=== PATIENT | female | born 1935 | race Caucasian/White ===

== ENCOUNTER → 2021-06-27 | Outpatient (CLI) | payer MEDICARE ==
--- NOTE | 2021-06-28 09:40 | RAD ---
MR#: [id number] Date of Study: 06/27/2021 Ordering Physician: MARIO GIPSON, Referring Physician: MARIO GIPSON, Tech: Jacklyn Jimenes RDMS, RVT, RTR APPROVED REPORT Bilateral Lower Extremity Venous Study for DVT Patient Location: OUT-PATIENT Indications Lower Extremity Edema: Bilateral Findings The bilateral lower extremity deep veins were evaluated for thrombus with color Doppler, spectral and grayscale images. On the right the grayscale images of the common femoral, superficial femoral and popliteal veins do n ot demonstrate any evidence of thrombus and these veins appear to be compressible. The below-knee vei ns were not well visualized but grossly appear to be compressible. Spectral imaging and color Doppler do not reveal any evidence of obstruction to flow with normal respirophasic variation above the knee . Below the knee there is spontaneous flow noted. On the left, the grayscale images of the common femoral, superficial femoral and popliteal veins do n ot demonstrate any evidence of thrombus and these veins appear to be compressible. The below-knee vei ns again were not well visualized but grossly appear to be compressible. Spectral imaging and color D oppler do not reveal any evidence of obstruction to flow with normal respirophasic variation above th e knee. The below-knee veins demonstrate spontaneous flow. Critical Notification Critical Value: No <Conclusion> 1. Negative for DVT in the bilateral lower extremities. 2. Technically difficult study. Signed by : Odell Mary, Electronically Approved : 06/28/2021 09:39:38
--- NOTE | 2021-06-28 10:13 | CARD ---
MR#: [id number] Date of Study: 06/27/2021 Ordering Physician: MARIO GIPSON, Referring Physician: MARIO GIPSON, Tech: Nessa Luis [facility] APPROVED REPORT EXAM: Two-dimensional and M-mode echocardiogram with Doppler and color Doppler. Other Information Quality : AverageHR: 79bpm Rhythm : NSR INDICATION Dyspnea RISK FACTORS Hypertension Obesity 2D DIMENSIONS RVDd3.6 (2.9-3.5cm)Left Atrium(2D)3.0 (1.6-4.0cm) IVSd0.9 (0.7-1.1cm)Aortic Root(2D)2.5 (2.0-3.7cm) LVDd3.4 (3.9-5.9cm)LVOT Diameter1.9 (1.8-2.4cm) PWd1.1 (0.7-1.1cm)LVDs2.2 (2.5-4.0cm) FS (%) 36.3 %SV32.7 ml LVEF(%)67.2 (>50%) Aortic Valve AoV Peak Brendan.118.8cm/sAoV VTI23.9cm AO Peak GR.5.6mmHgLVOT Peak Brendan.91.7cm/s AO Mean GR.3mmHgAVA (VMAX)2.21cm2 Mitral Valve MV E Njjzjfsf49.8cm/sMV DECEL NFSF140gk MV A Unvtqfbi885.4cm/sE/A Ratio0.6 Pulmonary Valve PV Peak Ijcrxwha239.0cm/s Tricuspid Valve TR P. Sthzuccw611oo/sTR Peak Gr.19mmHg LEFT VENTRICLE The left ventricle is normal size. There is normal left ventricular wall thickness. The left ventricu lar systolic function is normal and the ejection fraction is within normal range. Estimated ejection fraction 55-60%. There is normal LV segmental wall motion. Transmitral Doppler flow pattern is Grade I-abnormal relaxation pattern. RIGHT VENTRICLE The right ventricle is normal size. There is normal right ventricular wall thickness. The right ventr icular systolic function is normal. ATRIA The left atrium size is normal. The right atrium size is normal. The interatrial septum is intact wit h no evidence for an atrial septal defect or patent foramen ovale as noted on 2-D or Doppler imaging. AORTIC VALVE The aortic valve is normal in structure and function. Doppler and Color Flow revealed no significant aortic regurgitation. There is no significant aortic valvular stenosis. MITRAL VALVE The mitral valve is normal in structure and function. There is no evidence of mitral valve prolapse. There is no mitral valve stenosis. Doppler and Color Flow revealed no mitral valve regurgitation note d. TRICUSPID VALVE The tricuspid valve is normal in structure and function. Doppler and Color Flow revealed trace tricus pid regurgitation. Estimated PAP 23 mmHg. There is no tricuspid valve stenosis. PULMONIC VALVE Doppler and Color Flow revealed mild pulmonic valvular regurgitation. There is no pulmonic valvular s tenosis. GREAT VESSELS The aortic root is normal in size. The ascending aorta is normal in size. The IVC is normal in size a nd collapses >50% with inspiration. PERICARDIAL EFFUSION There is no evidence of significant pericardial effusion. Critical Notification Critical Value: No <Conclusion> The left ventricular systolic function is normal and the ejection fraction is within normal range. E stimated ejection fraction 55-60%. There is normal LV segmental wall motion. Signed by : Odell Mary, Electronically Approved : 06/28/2021 10:13:22
== END ==
LOC: US 09:26
PROVIDERS: ATTEND Internal Medicine Cardiovascular Disease
DX: I37.1 Nonrheumatic pulmonary valve insufficiency (principal); I50.9 Heart failure, unspecified; R60.0 Localized edema
CPT/HCPCS: 93306; 93970

== ENCOUNTER 2021-12-26 06:08 | Day surgery (SDC) | payer MEDICARE ==
[~2021-12-26] VITALS: Ht 162.6 cm; Wt 90.5 kg
[~2021-12-26 06:08] MED LIST: FURO-69 PO; HYDR-2765 PO; HYDROmorphone 2 MG/ML INJ. IVP PRN; IV RINGERS,LACTATED 1000ML 1,000 ML IV SCH; LISI20TA18 PO; MORPHINE SULFATE 2 MG/ML INJ. IVP PRN; MULT-697 PO; PROCHLORPERAZINE 10 MG/2 ML VIAL. IVP PRN; fentaNYL PF VIAL 100 MCG/2 ML VIAL IVP PRN
[2021-12-26] MEDS ORDERED: LIDOCAINE 2% PF 5 ML VIAL. ONE (06:52)
[2021-12-26] MEDS ORDERED: PROPOFOL 10 MG/ML (20ML) VIAL. IV ONE (06:52)
[2021-12-26] MEDS ORDERED: DEXAMETHASONE SOD PHOS 4 MG/ML VIAL ONE (06:53)
[2021-12-26] MEDS ORDERED: fentaNYL PF VIAL 100 MCG/2 ML VIAL ONE (06:53)
[2021-12-26] MEDS ORDERED: SEVOFLURANE 61 TO 120 MINUTES. IH ONE (06:53)
[2021-12-26] MEDS ORDERED: ONDANSETRON PF 4 MG/2 ML VIAL. ONE (06:53)
[2021-12-26] MEDS ORDERED: LIDOCAINE 1%/EPI 1:100,000 20 ML VIAL. ONE (07:06)
[2021-12-26] MEDS ORDERED: PHENYLEPHRINE in 0.9% NACL PF 1 MG/10 ML SYRINGE. IV ONE (07:45)
--- NOTE | 2021-12-26 08:37 | PDOC4 ---
Operative Note Operative Note Operative Note: Preoperative Diagnosis: Left forearm skin lesion Postoperative Diagnosis: Same Procedure: Excision of left forearm skin lesion, 6 X 4 cm, no additional margins Surgeon: Gó[employer]z [employer] Administrative Assistant: Flory Acevedo MS 3 Anesthesia: General EBL: 10 mL Specimen: Left forearm skin lesion stitch at distal margin to pathology Drains: None Complications: None Indication: The patient is an 86-year-old female who is referred due to a left forearm skin lesion that has been enlarging. We recommend excision for definitive treatment. The risks of surgery were discussed which include bleeding, infection, recurrence, pain, wound healing problems, anesthetic risk, potential need for additional surgery procedure. She understands and would like to proceed. Description: The patient was taken to the operating room and placed supine on the operating table. General anesthesia was performed. The left upper extremity was prepped and draped in a standard surgical manner. An elliptical incision was made around the skin lesion which was sizable. Cautery dissection was used to assist with full thickness excision of the lesion and surrounding skin. The excised area was 6 x 4 cm with no margins beyond that. A silk suture marked the distal margin and it was sent to pathology for evaluation. Hemostasis was achieved with cautery. The skin was reapproximated primarily using interrupted 4-0 nylon sutures. A sterile dressing was then applied. The patient tolerated the procedure well and was sent to the recovery room in stable condition. At the end of the case all counts were correct. KAREN ERNANDEZ MD December 26, 2021 08:37
[2021-12-26] MEDS ORDERED: HYDR-2761 PO (08:44)
--- NOTE | 2021-12-26 08:48 | DISCH ---
DISCHARGE INSTRUCTIONS Condition on Discharge Condition on Discharge: Stable Activity After Discharge Activity Instructions for Disc: Activity as tolerated Diet after Discharge Diet after Discharge: Regular Wound Incision Care Wound/Incision Care: Other, see below (Keep dressing clean and dry) Follow-Up Follow up with: Dr Ernandez in office in 1 week, call for appointment [phone] KAREN ERNANDEZ MD December 26, 2021 08:48
[2021-12-26] MEDS ORDERED: HYDROcodone/APAP 5/325MG 1 TAB TABLET PO ONE (09:00)
[2021-12-26 09:02] VITALS: BP 143/62
--- NOTE | 2021-12-28 16:07 | PATHOLOGY ---
[facility] Accession Number: [id number] . 01 Material submitted: . forearm - LEFT FOREARM SKIN LESION . 01 Clinical history: . FOREARM SKIN LESION STITCH AT DISTAL MARGIN . 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 - Inked margins of excision free of neoplasm. - No lymphovascular tumor invasion identified. - Marked solar degeneration. (JPM/db; 12/28/2021) [facility] 12/28/2021 1503 Local . 02 Electronically signed: . Thaddeus Henry MD, Pathologist NPI- [id number] . 01 Gross description: . Received in formalin labeled "Grisel Blank, left forearm skin lesion stitch at distal margin" is an oriented ellipse of skin measuring 5.5 x 2.4 x 1.7 cm. There is a suture at 1 of the tips designating the distal margin and will be arbitrarily designated as 12:00. The skin surface displays a poorly defined, raised, variegated, denuded, flaky, and pale cagle-pink to dark cagle lesion measuring 2.5 x 2.3 x 1.1 cm and measures 0.4 cm from the nearest margin. The margins are inked as follows: 12:00 to 3:00 yellow, 3:00 to 6:00 blue, 6:00 to 9:00 black, and 9:00 to 12:00 green. The specimen is sectioned into 20 pieces. Sectioning reveals pale cagle to dark cagle, focally hemorrhagic and solid cut surfaces. The specimen is submitted entirely in A1 to A13, with the tips in the last cassette. ([facility]; 12/27/2021) [facility] 12/27/2021 1730 Local . 02 Pathologist provided ICD-10: C44.629 . 02 CPT . 441827 Specimen Comment: A courtesy copy of this report has been sent to [phone], [phone] Specimen Comment: [id number] Specimen Comment: Report sent to / DR RUSSELL Performed at: [address] [facility], [place] [id number] MD Mitchell Cruz MD Phone: [phone] [facility]formed [facility]: [facility] [address] [place], [place] [id number] MD Thaddeus Henry MD Phone: [phone]
== END 2021-12-26 09:24 | disposition home or self-care (01) ==
LOC: SURG 06:08
PROVIDERS: ATTEND Surgery
DX: L98.8 Other specified disorders of the skin and subcutaneous tissue (principal); C44.629 Squamous cell carcinoma of skin of left upper limb, including shoulder; R22.31 Localized swelling, mass and lump, right upper limb; I10 Essential (primary) hypertension; K21.9 Gastro-esophageal reflux disease without esophagitis; M19.90 Unspecified osteoarthritis, unspecified site; Z87.891 Personal history of nicotine dependence; Z90.710 Acquired absence of both cervix and uterus; Z98.890 Other specified postprocedural states; Z79.899 Other long term (current) drug therapy; Z88.1 Allergy status to other antibiotic agents; Z88.8 Allergy status to other drugs, medicaments and biological substances
CPT/HCPCS: 11406; 88305; A4364; A4930; A6255; A6402; J0690; J1100; J2370; J2405; J2704; J3010; A4452; J3490